=== PATIENT | male | born 1930 ===

== ENCOUNTER 2016-08-30 07:57 | Day surgery (SDC) | payer MEDICARE, OTHER ==
[2016-08-30 08:08] VITALS: BMI 29.2
[2016-08-30 08:37] LABS: CHLORIDE 103 mmol/L (98-107); POTASSIUM 4.2 mmol/L (3.6-5.2); SODIUM 138 mmol/L (132-148)
[2016-08-30 08:38] LABS: BASO # 0.1 K/uL (0.0-0.2); BASO % 0.4 % (0.0-2.0); EOS # 0.2 K/uL (0.0-0.7); HEMATOCRIT 36.3 % (35.0-51.0); LYMPH # 2.6 K/uL (1.0-4.3); LYMPH % 16.6 % (20.0-40.0); MEAN CELL VOLUME 81.5 fL (80.0-94.0); MEAN CORPUSCULAR HEMOGLOBIN 26.7 pg (27.0-31.0); MEAN CORPUSCULAR HGB CONC 32.8 g/dL (33.0-37.0); MEAN PLATELET VOLUME 9.2 fL (7.2-11.7); MONO # 0.9 K/uL (0.0-0.8); MONO % 6.1 % (0.0-10.0); RED CELL DISTRIBUTION WIDTH 14.7 % (11.5-14.5); WHITE BLOOD COUNT 15.6 K/uL (4.8-10.8)
[2016-08-30 08:39] LABS: GFR AFRICAN-AMERICAN > 60
[2016-08-30 08:40] LABS: BLOOD UREA NITROGEN 27 mg/dL (9-20); CALCIUM 8.7 mg/dl (8.6-10.4); CARBON DIOXIDE 23 mmol/L (22-30); GLUCOSE,RANDOM 103 mg/dL (75-110)
[2016-08-30 08:46] LABS: INR 1.1
[2016-08-30] MEDS ORDERED: Iodixanol 320 MG/ML 200 ML BOTTLE IV ONE ×2 (14:54→15:22)
[2016-08-30] MEDS ORDERED: Sodium Chloride 0.45% 1,000 ML IV SCH (18:00)
[2016-08-30 22:00] VITALS: BP 128/53; PULSE 73; RESP 15; TEMP 98; O2SAT 95
--- NOTE | 2016-08-31 02:18 | OP ---
PROCEDURE DATE: 08/30/2016 PREOPERATIVE DIAGNOSIS: Peripheral vascular disease with nonhealing ulcer of the left hallux. POSTOPERATIVE DIAGNOSIS: Severe bilateral peripheral vascular disease PERFORMING PHYSICIAN: Elizabeth Rogers MD. REFERRING PHYSICIAN: Dr. Lewis Champagne. ANESTHESIA: Conscious sedation with Versed. PROCEDURE PERFORMED: Retrograde access right common femoral artery, selective catheter placement in the left superficial femoral artery via contralateral approach, abdominal aortography with bilateral iliofemoral runoff, bilateral lower extremity angiography, use of the [employer] [place] FFTlot chronic total occlusion crossing device, drug-coated balloon angioplasty, proximal left superficial femoral artery. 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 The patient has left foot pain. The patient is status post arterial duplex of bilateral lower extremity arteries. The patient was found to have severe bilateral peripheral vascular disease with occlusion of the left superficial femoral artery, popliteal artery, as well as right superficial femoral into the popliteal artery. Given the presence of dry gangrene, the patient was referred for angiography. DESCRIPTION OF PROCEDURE: After obtaining informed consent, the patient was prepped and draped in the usual sterile fashion. The right groin was anesthetized with 2% lidocaine solution. A 6-Japanese sheath was inserted into the right common femoral artery via modified Seldinger technique. A modified hook catheter was advanced to infrarenal abdominal aorta. Abdominal aortography was performed. The catheter was then positioned at the iliac bifurcation. Bilateral iliofemoral runoff was performed. Selective catheter placement with sheath exchange followed by angiography was described separately below. FINDINGS: The infrarenal abdominal aorta is free of aneurysm or dissection. Bilateral renal arteries arise normally and are free of significant atherosclerosis. The left common iliac artery has been previously stented. The stent is widely patent. Eccentric calcification and plaque were noted within bilateral iliac systems. The bilateral common femoral arteries have mild disease. In the right leg, there is plaque noted within the right proximal superficial femoral artery. Extensive calcification is noted throughout the superficial femoral artery on the right with an occlusion in the distal vessel. There is no significant reconstitution at this site. In the left leg, there is occlusion of the left common femoral into the proximal left superficial femoral artery. This is a chronic total occlusion. The proximal superficial femoral artery has been previously stented. There is reconstitution of the superficial femoral artery flow within the stent; however , the stent is occluded. Of note, the stent is occluded distally in its distal 1/3. The occlusion begins proximal to Jermaine's canal and extends throughout the entire popliteal artery and tibioperoneal trunk. Faint geniculate collaterals form reconstitution of the left anterior tibial artery and there is single vessel runoff to the left foot. PLAN: The decision was made to perform intervention on the left common femoral/ superficial femoral artery to improve inflow. The sheath was exchanged for a 7 x 45 cm Cook sheath. An AltheaDx ES guidewire was advanced to the proximal cap. The [employer] Ocelot chronic total occlusion crossing device was then loaded onto the [employer] ES guidewire and positioned at the proximal cap. Using lumivascular technology to remain intraluminal, the Ocelot device was used to slowly cross through the chronic total occlusion. Lumivascular technology allowed for full visualization of all arterial major and structures. There was significant calcium, which was intraluminal. The Ocelot device was able to assist with navigation around the calcific obstructive plaque within the common femoral and superficial femoral artery and allowed a lateral crossing into the mid to distal superficial femoral artery. The Ocelot device was removed. Balloon inflation initially was performed with a 2.0 mm and then a 4.0 mm balloon. This established a lumen with antegrade flow. Decision was made to perform drug-coated balloon angioplasty of the common femoral and superficial femoral artery. This was performed with a balloon of 4 mm x 80 mm. The balloon was then removed. Postangioplasty angiogram reveals brisk antegrade flow. Geniculate collaterals were much more prominent and reconstituted the anterior tibial artery, which then supplied flow to the foot. The patient tolerated the procedure well without complication. CONCLUSIONS: Successful use of the [employer] Ocelot chronic total occlusion crossing device to perform drug-coated balloon angioplasty of the common femoral and superficial femoral artery on the left. PLAN: The patient will continue with antiplatelet therapy. He is stable for discharge. Further management based upon Dr. Champagne. Elizabeth Rogers MD cc: [id number] TT: 08/31/2016 02:17:42 ange [email or web address]
== END 2016-08-30 22:25 | disposition home or self-care (01) ==
LOC: C.CATHLAB 07:57
PROVIDERS: ATTEND Internal Medicine Cardiovascular Disease
DX: I77.1 Stricture of artery (principal); L97.529 Non-pressure chronic ulcer of other part of left foot with unspecified severity; M79.672 Pain in left foot; I10 Essential (primary) hypertension; E78.00 Pure hypercholesterolemia, unspecified; I25.10 Atherosclerotic heart disease of native coronary artery without angina pectoris
CPT/HCPCS: 36247; 36415; 75625; 75716; 75774; 80048; 82948; 85025; 85347; 85610; 85730; C1725; C1760; C1766; C1769; C1887; C1894; C2623; J1644; J7030; Q9966